=== PATIENT | male | born 1980 | race Caucasian/White ===

== ENCOUNTER 2017-03-22 16:54 | Observation (INO) | payer MEDICAID, OTHER ==
[2017-03-22] MEDS ORDERED: ZOFRAN INJ 4 MG VIAL IVP PRN ×2 (17:06→18:53)
[2017-03-22] MEDS ORDERED: NS 1000 ML 1,000 ML IV ONE ×2 (17:10→18:53)
[2017-03-22] MEDS ORDERED: NS 1000 ML 1,000 ML IV SCH (18:00)
[2017-03-22 18:37] LABS: BASOPHILS % (AUTO) 0.7 % (0.2-1.0); EOSINOPHILS # (AUTO) 0.1 x10^3/uL (0.0-0.2); EOSINOPHILS % (AUTO) 1.6 % (0.9-2.9); HEMATOCRIT 52.3 % (42.0-54.0); HEMOGLOBIN 18.2 g/dL (13.5-18.0); LYMPHOCYTES # (AUTO) 1.7 X10^3/uL (1.3-2.9); LYMPHOCYTES % (AUTO) 26.1 % (21.0-51.0); MEAN CORPUSCULAR HEMOGLOBIN 33.2 pg (27.0-34.0); MEAN CORPUSCULAR HGB CONC 34.8 g/dL (33.0-35.0); MEAN CORPUSCULAR VOLUME 95.3 fL (80.0-100.0); MEAN PLATELET VOLUME 6.8 fL (7.4-11.0); MONOCYTES # (AUTO) 0.4 x10^3/uL (0.3-0.8); MONOCYTES % (AUTO) 6.7 % (0.0-13.0); NEUTROPHILS # (AUTO) 4.2 x10^3/uL (2.2-4.8); NEUTROPHILS % (AUTO) 64.9 % (42.0-75.0); PLATELET COUNT 190 X10^3/uL (150.0-450.0); RED BLOOD COUNT 5.49 X10^6/uL (4.7-6.0); WHITE BLOOD COUNT 6.4 X10^3/uL (3.6-10.0)
[2017-03-22 18:52] LABS: ALANINE AMINOTRANSFERASE 541 Units/L (12-78); ALBUMIN 3.8 g/dL (3.4-5.0); ALKALINE PHOSPHATASE 190 Units/L (46-116); AMYLASE 24 Units/L (25-115); ASPARTATE AMINO TRANSFERASE 207 Units/L (15-37); BLOOD UREA NITROGEN 9 mg/dL (7-18); CALCIUM 9.1 mg/dL (8.5-10.1); CARBON DIOXIDE 30.9 mmol/L (21-32); CHLORIDE 101 mmol/L (98-107); CREATININE 1.11 mg/dL (0.70-1.30); LIPASE 62 Units/L (73-393); SODIUM 137 mmol/L (136-145); TOTAL PROTEIN 8.1 g/dL (6.4-8.2); eGFR BLACK RACES > 60 (>60); eGFR NON BLACK RACES > 60 (>60)
[2017-03-22 20:07] VITALS: BMI 24.3
[2017-03-22] MEDS ORDERED: NS 1000 ML 1,000 ML ONE (20:37)
[2017-03-22] MEDS: NS 1000 ML 1,000 ML IV SCH (20:45)
[2017-03-22] MEDS ORDERED: NS 100 ML IV 100 ML IV ONE (21:28)
[2017-03-22 22:08] LABS: BILIRUBIN,URINE NEGATIVE (NEGATIVE); BLOOD/HEMOGLOBIN,URINE NEGATIVE (NEGATIVE); GLUCOSE, URINE NEGATIVE (NEGATIVE); KETONES,URINE NEGATIVE (NEGATIVE); LEUKOCYTE ESTERASE ,URINE NEGATIVE (NEGATIVE); NITRITES,URINE NEGATIVE (NEGATIVE); PH,URINE 6.5 (5.0 - 8.0); PROTEIN,URINE NEGATIVE (NEGATIVE); UROBILINOGEN,URINE NORMAL (NORMAL)
[2017-03-22 22:15] LABS: APPEARANCE,URINE CLEAR (CLEAR); BACTERIA,URINE TRACE /HPF (NEGATIVE); COLOR,URINE YELLOW (YELLOW); RBC,URINE NONE SEEN /HPF (NEGATIVE); SQUAMOUS EPITHELIAL CELL,UR RARE /HPF (NEGATIVE)
[2017-03-23] MEDS: NS 1000 ML 1,000 ML IV SCH ×3 (04:13→10:39)
[2017-03-23 05:18] LABS: BASOPHILS % (AUTO) 0.5 % (0.2-1.0); EOSINOPHILS # (AUTO) 0.2 x10^3/uL (0.0-0.2); EOSINOPHILS % (AUTO) 2.6 % (0.9-2.9); HEMATOCRIT 43.7 % (42.0-54.0); HEMOGLOBIN 15.1 g/dL (13.5-18.0); LYMPHOCYTES # (AUTO) 1.9 X10^3/uL (1.3-2.9); LYMPHOCYTES % (AUTO) 29.7 % (21.0-51.0); MEAN CORPUSCULAR HEMOGLOBIN 33.3 pg (27.0-34.0); MEAN CORPUSCULAR HGB CONC 34.6 g/dL (33.0-35.0); MEAN CORPUSCULAR VOLUME 96.1 fL (80.0-100.0); MEAN PLATELET VOLUME 7.3 fL (7.4-11.0); MONOCYTES # (AUTO) 0.5 x10^3/uL (0.3-0.8); MONOCYTES % (AUTO) 8.3 % (0.0-13.0); NEUTROPHILS # (AUTO) 3.7 x10^3/uL (2.2-4.8); NEUTROPHILS % (AUTO) 58.9 % (42.0-75.0); PLATELET COUNT 167 X10^3/uL (150.0-450.0); RED BLOOD COUNT 4.55 X10^6/uL (4.7-6.0); RED CELL DISTRIBUTION WIDTH 13.9 % (11.6-16.5); WHITE BLOOD COUNT 6.2 X10^3/uL (3.6-10.0)
[2017-03-23 05:32] LABS: ALANINE AMINOTRANSFERASE 376 Units/L (12-78); ALBUMIN 2.7 g/dL (3.4-5.0); ALKALINE PHOSPHATASE 152 Units/L (46-116); ASPARTATE AMINO TRANSFERASE 134 Units/L (15-37); BLOOD UREA NITROGEN 7 mg/dL (7-18); CARBON DIOXIDE 28.6 mmol/L (21-32); CHLORIDE 107 mmol/L (98-107); CREATININE 0.87 mg/dL (0.70-1.30); SODIUM 141 mmol/L (136-145); eGFR BLACK RACES > 60 (>60); eGFR NON BLACK RACES > 60 (>60)
--- NOTE | 2017-03-23 07:25 | CT ---
HISTORY: Left lower quadrant pain Study: CT abdomen pelvis with contrast Comparison: None Technique: Axial post-contrast images with coronal and sagittal reformats. Dose reduction procedures were used with MA/kv adjusted for body size. Findings: The lung bases are clear. The liver, spleen, adrenal glands, and pancreas are within normal limits. N o opaque stones are visible within the gallbladder. The kidneys are unobstructed and without stones o r masses. No ureteral calculi are identified. The appendix is normal. No enlarged intraperitoneal or retroperitoneal lymphadenopathy is identified. Scattered nonenlarged mesenteric lymph nodes are prese nt. There are no findings suggestive of diverticulitis or colitis. Examination of the pelvis demonstr ated no evidence for pelvic masses, pelvic fluid, or pelvic lymphadenopathy. No bladder abnormality i s identified. No lytic or blastic skeletal lesions are identified. IMPRESSION: No significant abnormality identified Reported By:
[2017-03-23] MEDS ORDERED: PEPCID 20 MG IV PREMIX* 20 MG/50 ML BAG IV SCH (10:00)
[2017-03-23] MEDS ORDERED: PROTONIX INJ 40 MG VIAL IVP SCH (10:00)
[2017-03-23 16:21] VITALS: BP 107/58
--- NOTE | 2017-03-25 11:16 | DR.CARTERS ---
Short Stay Summary - Short Stay Summary for: Short Stay Summary for Date of:: 03/23/17 - Admission Date Date of Admission: 03/22/17 - Discharge Date Discharge Date: 03/23/17 - Admission Diagnoses (1) Abdominal pain Status: Acute (2) Nausea and vomiting Status: Active (3) Dehydration Status: Acute (4) Gastroenteritis Status: Acute - Hospital Course Hospital Course: Day 1: is a 36 year old white male who was a direct admission for complaints of nausea, vomiting, diarrhea, and abdominal pain. Patient is noted with shortness of breath on exertion. Patient reported that he has had symptoms for a while, but symptoms have progressively gotten worse over the past 2 days. On examination, lungs were clear to auscultation. Abdomen is soft, flat, and tender to palpation. He reported diffuse tenderness. Bowel sounds are hyperactive in all quadrants. Patient reported that symptoms are usually worse after eating. We admitted patient for further treatment and evaluation. He was started on Pepcid 20mg IV [id number], Zofran 4mg IV q4hour PRN nausea, Saline Flush 10ml IV TID, NS 1000ml IV bolus x 1, then NS at 125ml/hr. On admission, his vital signs were 98.1, 73, 20, 98%RA, 126/76. A CBC, CMP, urinalysis, blood cultures, and abd/pelvis ct were obtained. Abnormal lab values include the following: Hgb 18.2, MPV 6.8, AST 207, ALT 541, Alk Phos 190, A/G Ratio 0.9, Amylase 24, Lipase 62. Urinalysis reports WBC 0-3, Bacteria Trace. Blood cultures were obtained and are pending. Abd/ Pelvis CT reported no significant abnormality identified. He reported a medical history of asthma, kidney stones, back pain, back surgery x3. We planned to follow up with am labs and continue to monitor patient. Day 2: is alert and oriented, lying in bed on morning rounds. Patients spouse is at bedside. Today, he continues with complaints of abdominal pain and nausea. On examination, lungs are noted clear to auscultation. Abdomen is soft, round, and tender to palpation. Normal bowel sounds are noted in all quadrants. His vital signs this morning are 97.9-63-20- 97%-103/55. A CBC and CMP were obtained. Abnormal lab values include the following: RBC 4.55, calcium 8.0, AST 134, ALT 376, Alk phos 152, total protein 6.0, albumin 2.7. We planned to order a hepatitis panel, gallbladder US, and a HIDA scan. We planned to follow up with am labs and continue monitoring patient. Patient was instructed to remain NPO until test were completed. At 15: 30, staff reported that patient was becoming increasingly agitated due to having to remain NPO and wait for Gallbladder US. Staff informed patient of wait time for US. Patient refused to wait and signed out against medical advice. Patient left facility with spouse in stable condition. - Discharge Medications Discharge Medications: NK [NK] 03/22/17 [History] - Discharge Plan Disposition: 07 AGAINST MEDICAL ADVICE Condition: Stable - Follow up/Referrals Follow up/Referrals: SYDNI HOLLEY [Nurse Practitioner] - - Instructions
== END 2017-03-23 16:15 | disposition left against medical advice (07) ==
LOC: MED/SURG 16:54
PROVIDERS: ADMIT Internal Medicine; ATTEND Internal Medicine
DX: K52.89 Other specified noninfective gastroenteritis and colitis (principal); E86.0 Dehydration; R19.7 Diarrhea, unspecified; R10.32 Left lower quadrant pain; R94.5 Abnormal results of liver function studies; R11.2 Nausea with vomiting, unspecified
CPT/HCPCS: 36415; 74177; 80053; 80074; 81001; 82150; 83690; 85025; 87040; A4216; A4222; C9113; S0028; G0378; J2405